=== PATIENT | female | born 1995 | race Caucasian/White ===

== ENCOUNTER 2019-12-19 10:17 | Emergency (ER) | payer OTHER, SELFPAY ==
[2019-12-19 10:24] VITALS: BP 136/75; PULSE 78; RESP 14; TEMP 36.6; O2SAT 100
--- NOTE | 2019-12-19 10:38 | ED.GENADULT ---
HPI - General Adult General Chief complaint: Nausea/Vomiting/Diarrhea Stated complaint: Vomitting/diarrhea Time Seen by Provider: 12/19/19 10:38 Source: patient and RN notes reviewed Mode of arrival: ambulatory Limitations: no limitations History of Present Illness HPI narrative: 23-year-old female presents with complaints of nausea, vomiting, diarrhea, and intermittent abdominal cramping for the past 14 days. Vomiting and diarrhea with nausea daily, last this morning at 10:00. History of IBS, GERD, and Gastritis. Has not seen GI MD in [place], sought treatment here on 10/21/19 and started on Zofran (every 8) and Bentyl (B.I.D.) as needed for abdominal cramping by mouth with relief. Zofran with little to no relief. No abdominal pain or cramping at this time. Vomiting 2-3 episodes daily without blood or coffee ground contents. Diarrhea 5 episodes daily of light brown liquid stools without blood, LBM 12/19/19@10:00. Exacerbating factors consist of eating and drinking. Denies fever or chills. Denies headache, dizziness, back pain, and dysuria. Genoveva denies being , LMP 10/2019 says she has irregular menstrual cycles and is currently on Depo-provera which was due 11/25/19 (has not received injection at this time). Remains active. Some parts of this dictation were generated by voice recognition software and may contain typographical and/or grammatical inaccuracies. Related Data Allergies Allergy/AdvReac Type Severity Reaction Status Date / Time No Known Allergies Allergy Unknown Verified 12/19/19 10:34 Review of Systems Review of Systems: Narrative: CONSTITUTIONAL: Denies fever, chills, sweats. EYES: Denies visual changes, redness, discharge. ENT: Denies rhinorrhea, congestion, sore throat, otalgia. CARDIOVASCULAR: Denies chest pain, palpitations, edema. RESPIRATORY: Denies dyspnea, wheezing, cough. GASTROINTESTINAL: Complains of abdominal pain, vomiting, diarrhea, nausea and decrease appetite. GENITOURINARY: Denies dysuria, hematuria, abnormal discharge. SKIN: Denies rash or itching. MUSCULOSKELETAL: Denies acute back pain, joint pain, or myalgia. NEUROLOGIC: Denies numbness or focal weakness. PSYCHIATRIC: Denies anxiety or depression. All other systems reviewed are negative, except as documented in HPI and below. [facility] Past Medical History Medical History (Updated 12/26/19 @ 14:50 by OLIVA Ugalde) Encounter for counseling regarding contraception Encounter for visit History of gestational hypertension Vaginal discharge Surgical History Surgical History (Updated 12/19/19 @ 10:52 by OLIVA Ugalde) History of tonsillectomy Family History Family History Grandparent Hypertension Mother Hypertension Social History Social History (Updated 12/19/19 @ 10:53 by OLIVA Ugalde) Smoking status: Former smoker Additional smoking assessment comments: Alva says she stopped smoking cigarettes and vaping in 11/20 Alcohol intake: never Substance use: never Living arrangements: with family Occupation/Education: occupation Gender identity (if verbalized by the patient): Female Comments At time of signature, I have reviewed and agree with nursing past medical, surgical, social, and family history. Please see nursing chart for further information. There is no relevant family history pertinent to the presenting complaint. Exam Narrative: Exam Narrative: GENERAL: This is a well-nourished, well-developed patient, in no apparent distress. Talks in full sentences without deficits and ambulates with steady gait without dyspnea. HEAD: normocephalic, atraumatic. EYES: PERRL. Sclera clear/white. Vision is grossly intact. THROAT: Mucous membranes moist, posterior pharynx clear. NECK: Neck supple, non-tender without lymphadenopathy, masses or thyromegaly. CARDIOVASCULAR: Regular rate and rhythm without murmur
== END 2019-12-19 11:27 | disposition home or self-care (01) ==
PROVIDERS: Emergency Provider Nurse Practitioner Family
DX: K21.9 Gastro-esophageal reflux disease without esophagitis (principal); Z87.891 Personal history of nicotine dependence
CPT/HCPCS: 81003; 81025; 87086; 99213; G0463

== ENCOUNTER 2022-08-19 11:25 | Emergency (ER) | payer BC, OTHER, SELFPAY ==
[2022-08-19 11:29] VITALS: BP 133/64; PULSE 97; RESP 18; TEMP 36.9; O2SAT 100
--- NOTE | 2022-08-19 11:54 | ED.URI ---
HPI - URI/Sore Throat General Chief Complaint: Upper Respiratory Infection Stated Complaint: aches and cough Time Seen by Provider: 08/19/22 11:47 Source: patient Mode of arrival: ambulatory Limitations: no limitations History of Present Illness HPI Narrative: Patient presents today complaining of cough since yesterday and body aches since this morning. Denies any additional symptoms to include fever or sore throat. Son was diagnosed with influenza a today at the fitness assistant's office. Patient has tried no [id number]-joy-[id number] treatment prior to arrival. Related Data Home Medications Medication Instructions Recorded Confirmed No Home Medications 08/19/22 08/19/22 Allergies Allergy/AdvReac Type Severity Reaction Status Date / Time No Known Allergies Allergy Unknown Verified 08/19/22 11:43 Review of Systems Review of Systems: CONSTITUTIONAL: Denies fever, chills, or sweats.+ body aches EYES: Denies visual changes, redness, or discharge. ENT: Denies rhinorrhea, congestion, sore throat, or otalgia. CARDIOVASCULAR: Denies chest pain, palpitations, or edema. RESPIRATORY: Denies dyspnea.+ cough GASTROINTESTINAL: Denies abdominal pain, nausea, vomiting, or diarrhea. GENITOURINARY: Denies dysuria or hematuria. SKIN: Denies rash, itching, or wounds. MUSCULOSKELETAL: Denies back pain, joint pain, or myalgia. NEUROLOGIC: Denies headache, numbness, tingling, or weakness. PSYCH: Denies depression or anxiety. [facility] Past Medical History Medical History Encounter for counseling regarding contraception Encounter for visit History of gestational hypertension Vaginal discharge Surgical History Surgical History History of tonsillectomy Family History Family History Grandparent Hypertension Mother Hypertension Social History Social History Smoking status: Former smoker Additional smoking assessment comments: Alva says she stopped smoking cigarettes and vaping in 11/20 Alcohol intake: never Substance use: never Gender identity (if verbalized by the patient): Female Comments At time of signature, I have reviewed and agree with nursing past medical, surgical, social and family history unless otherwise noted. Please see nursing chart for further information. There is no relevant family history pertinent to the presenting complaint Exam Narrative: GENERAL: Mildly ill-appearing, well-nourished, and in no acute distress. HEAD: Normocephalic, atraumatic. EYES: EOMI. No redness or drainage. Conjunctivae normal. ENT: Mucous membranes pink and moist. Nares clear. No rhinorrhea. TMs normal bilaterally. Throat normal. Uvula midline. NECK: Normal AROM. Supple. No lymphadenopathy. CHEST: No respiratory distress. Clear to auscultation. HEART: Regular rate and rhythm. No murmur appreciated. Normal peripheral pulses. EXTREMITIES: Normal range of motion. No edema. SKIN: Warm, dry, no rash. Capillary refill normal. Normal skin turgor. NEURO: No focal deficits. Alert and oriented x3. Gait steady. PSYCH: Normal affect. No signs of depression or anxiety. Course Course Level of Care: Express Care Visit Vital Signs Vital signs: Vital Signs Temperature 98.4 F 08/19/22 11:29 Pulse Rate 97 08/19/22 11:29 Respiratory Rate 18 08/19/22 11:29 Blood Pressure 133/64 08/19/22 11:29 Pulse Oximetry 100 08/19/22 11:29 Oxygen Delivery Room Air 08/19/22 11:29 Temperature 98.4 F 08/19/22 11:29 Pulse Rate 97 08/19/22 11:29 Respiratory Rate 18 08/19/22 11:29 Blood Pressure 133/64 08/19/22 11:29 Pulse Oximetry 100 08/19/22 11:29 Oxygen Delivery Room Air 08/19/22 11:29 Reviewed. Pt has been instructed to follow up with her PCP nolan
== END 2022-08-19 12:05 | disposition home or self-care (01) ==
PROVIDERS: Emergency Provider Nurse Practitioner
DX: R05.9 Cough, unspecified (principal); R52 Pain, unspecified; Z87.891 Personal history of nicotine dependence
CPT/HCPCS: 87804; 99213; G0463

== ENCOUNTER 2022-12-28 08:48 | Emergency (ER) | payer BC, OTHER, SELFPAY ==
[2022-12-28 08:58] VITALS: BP 115/66; PULSE 83; RESP 16; TEMP 36.5; O2SAT 99
--- NOTE | 2022-12-28 09:00 | ED.EAR ---
HPI - Ear Problem General Chief complaint: Ear Stated complaint: Left Ear Pain Time Seen by Provider: 12/28/22 09:00 Source: patient, RN notes reviewed and old records reviewed Mode of arrival: ambulatory Limitations: no limitations History of Present Illness HPI Narrative: 26-year-old female who presents to [facility] with complaints of decreased hearing in her left ear for past 4-5 days with discomfort. She reports she has also had some sinus congestion and headache for 1 week duration but that has improved. Patient states she has been taking Tylenol and ibuprofen for her discomfort has not taken any antihistamines or any decongestants. MD Complaint: ear pain and decreased hearing Location: left ear Duration: constant Discharge from ear: Reports no Treatment prior to arrival: oral analgesic Related Data Allergies Allergy/AdvReac Type Severity Reaction Status Date / Time No Known Allergies Allergy Unknown Verified 12/28/22 08:59 Review of Systems Review of Systems: CONSTITUTIONAL: Denies malaise, chills, sweats, or fever. EYES: Denies visual changes, redness, or discharge. ENT: Reports rhinorrhea, congestion, sinus pain, left otalgia denies sore throat. CARDIOVASCULAR: Denies chest pain, palpitations, or edema. RESPIRATORY: Reports cough.? Denies dyspnea. GASTROINTESTINAL: Denies abdominal pain, nausea, vomiting, diarrhea SKIN: Denies rash or itching. MUSCULOSKELETAL: Denies myalgia. NEUROLOGIC: Reports headache. All systems reviewed & are unremarkable except as noted in HPI and below PMFSH Past Medical History Medical History Encounter for counseling regarding contraception Encounter for visit History of gestational hypertension Vaginal discharge Surgical History Surgical History History of tonsillectomy Family History Family History Grandparent Hypertension Mother Hypertension Social History Social History Smoking status: Former smoker Additional smoking assessment comments: Alva says she stopped smoking cigarettes and vaping in 11/20 Alcohol intake: never Substance use: never Living arrangements: with family Occupation/Education: occupation Gender identity (if verbalized by the patient): Female Comments At time of signature, agree with nursing past medical, surgical, social and family history. There is no relevant family history pertinent to the presenting complaint Exam Narrative: GENERAL: Well-appearing, well-nourished, and in no acute distress. HEAD: Normocephalic EYES: PERRLA, conjunctivae clear ENT: Nares clear, turbinates edematous and erythematous, clear to light yellow discharge. Mucous membranes moist.Left TM red and bulging, right TM pearly strickland with dull light reflex bilaterally; no tragal tenderness. Oropharynx erythematous without lesions. Tonsils not present and throat without exudate, no drooling, no hoarseness, no trismus, uvula midline.post nasal drainage NECK: Supple. No lymphadenopathy CHEST: Clear to auscultation, breath sounds equal. No wheezing, rhonchi, rales, or stridor. No respiratory distress, speaks in full sentences.no cough noted SAO2 99% on room air HEART: Regular rate and rhythm. No murmur heard. SKIN: Warm, dry, no rash. NEURO: Alert and oriented x3. PSYCH: Normal mood and affect Course Course Emergency Course: Patient is aware of diagnosis, understands and agrees to treatment plan.? Anticipatory guidance given.? Patient agrees to follow-up as directed and is aware of reasons to seek care at the emergency department. Portions of this record may have been created with voice recognition software Level of Care: Express Care Visit Vital Signs Vital signs: Vital Signs Temperature 36.5 C
== END 2022-12-28 09:15 | disposition home or self-care (01) ==
PROVIDERS: Emergency Provider Registered Nurse; PCP Family Medicine
DX: H66.92 Otitis media, unspecified, left ear (principal); Z87.891 Personal history of nicotine dependence
CPT/HCPCS: 99213; G0463

== ENCOUNTER 2023-04-01 18:10 | Emergency (ER) | payer BC, OTHER, SELFPAY ==
[2023-04-01 18:14] VITALS: BP 121/65; PULSE 77; RESP 20; TEMP 36.8; O2SAT 100
--- NOTE | 2023-04-01 18:20 | ED.SKABFB ---
HPI - Skin/Abscess/Foreign Bdy General Chief complaint: Skin/Abscess/Foreign Body Stated complaint: burn on stomach Time Seen by Provider: 04/01/23 18:20 Source: patient, RN notes reviewed and old records reviewed Mode of arrival: ambulatory Limitations: no limitations History of Present Illness HPI narrative: 27-year-old female presents to the [facility] with complaints of a burn to her abdomen. States that she was pulling spaghetti out a pot the water splashed her about 1-2 hours ago. 8 x 8 erythema noted to the abdomen. Small blister noted to the center measuring less than 1 cm. Unknown last tetanus Had applied a ?burn cream? to the area after it happened Tetanus up to date: unsure Related Data Home Medications Medication Instructions Recorded Confirmed No Home Medications 04/01/23 04/01/23 Allergies Allergy/AdvReac Type Severity Reaction Status Date / Time No Known Allergies Allergy Unknown Verified 04/01/23 18:40 Review of Systems Review of Systems: All systems reviewed & are unremarkable except as noted in HPI and below Constitutional: Constitutional: Reports no additional constitutional complaints Eyes: Eyes: Reports no additional eye complaints ENT: Reports system reviewed and no additional complaints, except as documented Cardiovascular: Cardiovascular: Reports no additional cardiovascular complaints, Denies chest pain and Denies dyspnea Respiratory: Respiratory: Reports no additional respiratory complaints, Denies chest congestion, Denies cough and Denies dyspnea Gastrointestinal: Gastrointestinal: Reports no additional gastrointestinal complaints, Denies abdominal pain, Denies nausea and Denies vomiting Musculoskeletal: Musculoskeletal: Reports no additional musculoskeletal complaints Integumentary/Breasts: Skin/Breast: Reports as per HPI Neurologic: Reports system reviewed and no additional complaints, except as documented Psychiatric: Psychiatric: Reports no additional psychiatric complaints Allergic/Immunologic: Allergic/Immunologic: Reports no additional allergic/immunologic complaints [facility] Past Medical History Medical History Encounter for counseling regarding contraception Encounter for visit History of gestational hypertension Vaginal discharge Surgical History Surgical History History of tonsillectomy Family History Family History Grandparent Hypertension Mother Hypertension Social History Social History (Reviewed 04/01/23 @ 19:46 by OMAR Mcginnis Smoking status: Former smoker Additional smoking assessment comments: Alva says she stopped smoking cigarettes and vaping in 11/20 Alcohol intake: never Substance use: never Living arrangements: with family Occupation/Education: occupation Gender identity (if verbalized by the patient): Female Comments At the time of my signature, I reviewed and agree with the nursing past medical, surgical, social, and family history. There is no relevant family history pertinent to the patient complaint. Exam Const: General: cooperative, healthy appearing, comfortable, no acute distress, well developed, alert and well nourished Nutritional Appearance: well nourished and obese Orientation/consciousness: patient oriented x3 Limitations: no limitations HENMT: Head: normal to inspection Ears: hearing grossly normal bilaterally and external ears normal Face/Nose/Sinus: Normal external nose present, Normal nares present, Normal nasal mucous membranes and turbinates present and normal facial exam Face and sinus: normal facial exam Eyes: General: appearance normal, both eyes and all related structures Alignment and Position: alignment normal Periorbital: periorbital findings normal Pupils: Equal, round and reactive pupils present EOM: EOMs inta
[2023-04-01] MEDS: TETANUS,DIPHTHERIA,AC PERTUSSIS ADULT (0.5 ML) BOOSTRIX IM (18:29)
[2023-04-01] MEDS: SILVER SULFADIAZINE 1% CR 50 GM JAR (*BKC) 1 APPLIC TOPICAL (18:30)
== END 2023-04-01 18:41 | disposition home or self-care (01) ==
PROVIDERS: Emergency Provider Nurse Practitioner
DX: T21.12XA Burn of first degree of abdominal wall, initial encounter (principal); X12.XXXA Contact with other hot fluids, initial encounter; Z23 Encounter for immunization; F17.290 Nicotine dependence, other tobacco product, uncomplicated
CPT/HCPCS: 90471; 90715; 99213; A9270; G0463

== ENCOUNTER 2025-05-06 11:14 | Emergency (ER) | payer BC, OTHER, SELFPAY ==
[2025-05-06 11:26] VITALS: BP 117/69; PULSE 68; RESP 16; TEMP 36.5; O2SAT 100
--- NOTE | 2025-05-06 11:29 | ED_ITS ---
HPI - Ear Problem General Chief complaint: Ear Stated complaint: Ears Time Seen by Provider: 05/06/25 11:29 Source: patient Mode of arrival: ambulatory Limitations: no limitations History of Present Illness HPI Narrative: 29 y/o female presented for c/o left ear pain x5 days. Denies tinnitus, dizziness, ear drainage, nasal congestion, n/v/d/f/c. Taking ibuprofen and tylenol. hx tubes as child. Complaint: ear pain Related Data Allergies Allergy/AdvReac Type Severity Reaction Status Date / Time No Known Allergies Allergy Unknown Verified 05/06/25 11:31 Review of Systems Review of Systems: CONSTITUTIONAL: Denies malaise, chills, or fever. EYES: Denies visual changes, redness, or discharge. ENT: Denies rhinorrhea, congestion, sinus pain, and sore throat. Reports ear pain CARDIOVASCULAR: Denies chest pain, palpitations, or edema. RESPIRATORY: Denies cough or dyspnea. GASTROINTESTINAL: Denies abdominal pain, nausea, vomiting, diarrhea SKIN: Denies rash or itching. MUSCULOSKELETAL: Denies myalgia. NEUROLOGIC: Denies headache. All systems reviewed & are unremarkable except as noted in HPI and below PMFSH Past Medical History Medical History Encounter for counseling regarding contraception Encounter for visit History of gestational hypertension Vaginal discharge Surgical History Surgical History History of tonsillectomy Family History Family History Grandparent Hypertension Mother Hypertension Social History Social History Smoking status: Former smoker Additional smoking assessment comments: Alva says she stopped smoking cigarettes and vaping in 11/20 Alcohol intake: never Substance use: never Living arrangements: with family Occupation/Education: occupation Gender identity (if verbalized by the patient): Female Comments At time of signature, agree with nursing past medical, surgical, social and family history. There is no relevant family history pertinent to the presenting complaint Exam Narrative: GENERAL: Well-appearing EYES: conjunctivae clear ENT: Nares clear. Mucous membranes moist. Left TM erythematous, bulging and intact; canal with swelling and erythema, no drainage, no tragal tenderness. no drooling, no hoarseness, no trismus, uvula midline. NECK: Supple. No lymphadenopathy CHEST: Clear to auscultation, breath sounds equal. HEART: Regular rate and rhythm. SKIN: Warm, dry, no rash. NEURO: Alert and oriented x3. PSYCH: Normal mood and affect Course Course Emergency Course: Patient is aware of diagnosis, understands and agrees to treatment plan. Anticipatory guidance given. Patient agrees to follow-up as directed and is aw are of reasons to seek care at the emergency department. Portions of this record may have been created with voice recognition software Level of Care: Express Care Visit Vital Signs Vital signs: Reviewed Medical Decision Making MDM Narrative Medical decision making narrative: Discussed physical exam findings c/w left AOM, will also treat for OE. v/u. Advised supportive measures and signs/symptoms to go to the ER. Patient is appropriate for outpatient treatment and follow-up. Differential Diagnosis Differential Diagnosis: Coronavirus, strep pharyngitis, allergic rhinitis, upper respiratory tract infection, sinusitis, rhinosinusitis, nasopharyngitis, viral pharyngitis, otitis media, otitis externa, eustachian tube dysfunction, foreign body, cerumen impaction. Discharge Plan Discharge Clinical Impression: Otitis media Patient Disposition: Home Condition: Stable Instructions: Antibiotic Form, Ear Infection (ED) Additional Instructions: Swimmer's ear is an infection in the outer ear canal, which runs from your eardrum to the outside of your head. It's often caused by water that remains in your ear, creating a moist environment that encourages the growth of bacteria. Take antibiotic drops and pills as directed. Tylenol and ibuprofen every 8 hours as needed to reduce fever, pain Avoid water or anything into the ear for one week Follow up with your personal physician for further evaluation and treatment w ithin 3-5days. If your symptoms persist, change or worsen significantly, go to the emergency department for further evaluation. Patient Language: Bengali Prescriptions: New amoxicillin-pot clavulanate 875-125 mg tablet 1 tablet PO Q12H 7 Days Qty: 14 0RF ciprofloxacin-dexamethasone 0.3-0.1 % drops,suspension 4 drp LEFT EAR Q12H 7 Days Qty: 7.5 0RF Follow-up/Referrals: PHYSICIAN,INSIDE SALES REPRESENTATIVE [Primary Care Provider] - Time of Disposition: 11:36
== END 2025-05-06 11:38 | disposition home or self-care (01) ==
PROVIDERS: Emergency Provider Nurse Practitioner Family
DX: H66.92 Otitis media, unspecified, left ear (principal); Z87.891 Personal history of nicotine dependence
CPT/HCPCS: 99213; G0463

== ENCOUNTER 2025-08-06 08:27 | Emergency (ER) | payer BC, OTHER, SELFPAY ==
[2025-08-06 08:32] VITALS: BP 128/74; PULSE 94; RESP 16; TEMP 36.7; O2SAT 100
--- NOTE | 2025-08-06 08:41 | ED_ITS ---
HPI - URI/Sore Throat General Chief Complaint: Upper Respiratory Infection Stated Complaint: ears/throat Time Seen by Provider: 08/06/25 08:39 Source: patient and RN notes reviewed Mode of arrival: ambulatory Limitations: no limitations History of Present Illness HPI Narrative: 29-year-old female presents concern for one-week history of ear pain, throat pain for 2 days. Reports swollen lymph nodes. She denies runny nose, stuffy nose, cough, fever, aches, chills, sweats. MD elicited complaint: sore throat Related Data Allergies Allergy/AdvReac Type Severity Reaction Status Date / Time No Known Allergies Allergy Unknown Verified 08/06/25 08:39 Review of Systems Review of Systems: CONSTITUTIONAL: Denies malaise, chills, sweats, or fever. EYES: Denies visual changes, redness, or discharge. ENT: Denies rhinorrhea, congestion, sinus pain. Reports otalgia and sore throat. CARDIOVASCULAR: Denies chest pain, palpitations, or edema. RESPIRATORY: Denies cough. Denies dyspnea. GASTROINTESTINAL: Denies abdominal pain, nausea, vomiting, diarrhea SKIN: Denies rash or itching. MUSCULOSKELETAL: Denies myalgia. NEUROLOGIC: Denies headache. All systems reviewed & are unremarkable except as noted in HPI and below PMFSH Past Medical History Medical History Encounter for counseling regarding contraception Encounter for visit History of gestational hypertension Vaginal discharge Surgical History Surgical History History of tonsillectomy Family History Family History Grandparent Hypertension Mother Hypertension Social History Social History Additional smoking assessment comments: Alva says she stopped smoking cigarettes and vaping in 11/20 Alcohol intake: never Substance use: never Living arrangements: with family Occupation/Education: occupation Gender identity (if verbalized by the patient): Female Comments At time of signature, agree with nursing past medical, surgical, social and family history. There is no relevant family history pertinent to the presenting complaint Exam Narrative: GENERAL: Well-appearing, well-nourished, and in no acute distress. HEAD: Normocephalic EYES: PERRLA, conjunctivae clear ENT: Nares clear. Mucous membranes moist. TM pearly strickland with dull light reflex bilaterally; no tragal tenderness. Oropharynx not erythematous without lesions. Tonsils not enlarged and without exudate, no drooling, no hoarseness, no trismus, uvula midline. NECK: Supple. No lymphadenopathy CHEST: Clear to auscultation, breath sounds equal. No wheezing, rhonchi, rales, or stridor. No respiratory distress, speaks in full sentences. HEART: Regular rate and rhythm. No murmur heard. SKIN: Warm, dry, no rash. NEURO: Alert and oriented x3. PSYCH: Normal mood and affect Course Course Emergency Course: Patient is aware of diagnosis, understands and agrees to treatment plan. Anticipatory guidance given. Patient agrees to follow-up as directed and is aware of reasons to seek care at the emergency department. Portions of this record may have been created with voice recognition software Level of Care: Express Care Visit Vital Signs Vital signs: Vital Signs Temperature 98.1 F 08/06/25 08:32 Pulse Rate 94 08/06/25 08:32 Respiratory Rate 16 08/06/25 08:32 Blood Pressure 128/74 08/06/25 08:32 Pulse Oximetry 100 08/06/25 08:32 Oxygen Delivery Room Air 08/06/25 08:32 Temperature 98.1 F 08/06/25 08:32 Pulse Rate 94 08/06/25 08:32 Respiratory Rate 16 08/06/25 08:32 Blood Pressure 128/74 08/06/25 08:32 Pulse Oximetry 100 08/06/25 08:32 Oxygen Delivery Room Air 08/06/25 08:32 Reviewed. MDM - URI/Sore Throat MDM Narrative Medical decision making narrative: Differential diagnosis considered: Velásquez virus, strep pharyngitis, allergic rhinitis, upper respiratory tract infection, sinusitis, rhinosinusitis, nasopharyngitis. viral pharyngitis, otitis media, otitis externa, pneumonia, bronchitis, viral cough syndrome, viral syndrome, and influenza. Exam findings show no acute concerns or changes; patient is non-toxic appearing and is in no distress. Patient is appropriate for outpatient treatment and follow-up. Lab Data Attestation: I reviewed the patient's lab results. Critical Care Time Critical Care Time Critical Care Time: No Discharge Plan Discharge Clinical Impression: Acute streptococcal pharyngitis Patient Disposition: Home Condition: Stable Instructions: Antibiotic Form, Strep Throat (ED) Additional Instructions: -Take the medication as prescribed. Throw away the toothbrush after 24hours of antibiotic. -Eat and drink things that are easy to swallow, like tea or soup, or popsicles to suck on. -Oral rinses such as: Salt water gargles and/or may use topical anesthetic (eg. Chloraseptic spray) or lozenges to relieve dryness or throat pain). -Take Tylenol and ibuprofen as needed for pain and fever as directed. -Frequent hand washing or hand elevator service mechanic is one of the best ways to prevent spread of infection. -Follow up with primary care provider in 2-3 days if condition is not improving; or seek ER visit if you have trouble breathing, cannot drink enough fluids, have muffled voice, difficulty opening your mouth, or severe swelling. Patient Language: Kyrgyz Prescriptions: New penicillin V potassium 500 mg tablet 500 mg PO Q12H 10 Days Qty: 20 0RF Follow-up/Referrals: PHYSICIAN,[employer] [Primary Care Provider, Internal Medicine] Stand Alone Forms: Work/School Release IP Time of Disposition: 08:49
[2025-08-06 08:47] LABS: EDSTREPNEGPOS1 Positive (Negative)
== END 2025-08-06 08:54 | disposition home or self-care (01) ==
PROVIDERS: Emergency Provider Nurse Practitioner
DX: J02.0 Streptococcal pharyngitis (principal)
CPT/HCPCS: 87880; 99213; G0463